=== PATIENT | female | born 1960 | race Caucasian/White ===

== ENCOUNTER 2016-06-22 12:26 | Emergency (ER) | payer OTHER ==
[~2016-06-22] VITALS: Ht 160 cm; Wt 56.7 kg
[2016-06-22] MEDS ORDERED: MEDROL4 M2 PO (12:51)
[2016-06-22] MEDS ORDERED: CYCLOBENZAPRINE10 M1 PO (12:51)
[2016-06-22] MEDS ORDERED: PERCOCET 5-3251 EACH PO (12:51)
--- NOTE | 2016-06-22 12:57 | ED NECK/BACK PAIN COMPLAINT ---
History of Present Illness General Chief Complaint: Neck/Upper Back Pain/Injury Stated Complaint: HEAD AND NECK PAIN Source: patient, old records Exam Limitations: no limitations Vital Signs & Intake/Output Vital Signs & Intake/Output Vital Signs Date Time Temp Pulse Resp B/P Pulse O2 O2 Flow FiO2 Ox Delivery Rate 06/22 1249 Room Air 06/22 1231 98.3 86 16 97 Room Air Allergies Coded Allergies: NO KNOWN ALLERGIES (06/22/16) Reconcile Medications Cyclobenzaprine HCl 10 MG TABLET 1 TAB PO TID PRN spasm Methylprednisolone. (Medrol) 4 MG TAB.DS.PK 1 DP PO AD inflammation 6 on day 1 then reduce by one tablet daily until gone Oxycodone HCl/Acetaminophen (Percocet 5-325 MG Tablet) 5 MG-325 MG TABLET 1 TAB PO TID PRN pain Triage Note: 56 Y/O FEMALE C/O PAIN IN NECK "SHOOTING" DOWN CENTER BACK, "ALL THE WAY DOWN"; ONSET TUESDAY AND CONSTANT SINCE ONSET. DENIES INJURY OR TRAUMA. HAS NOT TAKEN ANY MEDS FOR PAIN. Triage Nurses Notes Reviewed? yes HPI: 56-year-old female who states she has a past medical history of disc replacement surgery at 2 levels, anterior approach, a proximally 7 or 8 years ago, he was complains of posterior neck pain and radiates down the middle of her spine. Has been going on for 2 days and is getting worse. She works as a rn telemetry, states she had a busy night on Summer which could've triggered the symptoms. She has not taken any medication for the pain. She has neck stiffness and limited range of motion. There is no recent trauma or injury no neurologic symptoms of weakness or numbness down the extremities. No headaches or confusion. She has had history of treatment with epidural injections in the past and sees a pain management doctor however does not take narcotics for the pain and has stopped taking the Neurontin for the pain because she states it makes her sleepy and did not help her symptoms. (DALIA JARAMILLO) Past History Travel History Traveled to [place] past 21 day No Medical History Any Pertinent Medical History? see below for history Neurological: migraine EENT: NONE Cardiovascular: CAD, myocardial infarction, STENTS Respiratory: NONE Gastrointestinal: NONE Hepatic: NONE Renal: NONE Musculoskeletal: sciatica Psychiatric: NONE Endocrine: NONE Surgical History Surgical History: cervical disc replacement surgery two-level Psychosocial History What is your primary language Greenlandic Tobacco Use: Current Not Daily Family History Hx Contributory? No (DALIA JARAMILLO) Review of Systems Review of Systems Constitutional: Reports: see HPI. Eyes: Reports: no symptoms. Ears, Nose, Throat, Mouth: Reports: no symptoms. Respiratory: Reports: no symptoms. Cardiovascular: Reports: no symptoms. Gastrointestinal/Abdominal: Reports: no symptoms. Musculoskeletal: Reports: see HPI. Skin: Reports: no symptoms. Neurological/Psychological: Reports: no symptoms. All Other Systems: Reviewed and Negative (DALIA JARAMILLO) Physical Exam Physical Exam General Appearance: well developed/nourished Neck: supple, limited range of motion, muscle spasm, paraspinous muscle tender, spinous processes tender Comments: Well-developed well-nourished no apparent distress. HEENT: Atraumatic, extraocular motion intact Neck: Supple, no lymphadenopathy Back: Nontender Respiratory: No respiratory distress Extremities: No edema, full range of motion Neuro: Alert and oriented x3 Psych: Mood affect normal, normal memory normal judgment. Skin: Warm and dry, no rash on exposed skin (DALIA JARAMILLO) Progress Differential Diagnosis: AAA, aortic dissection, C spine injury, carotid dissection, cauda equina syn, herniated disc, myofascial strain, pyelo/UTI, sciatica, spinal cord inj, thoracic outlet syn, T/L spine injury, ureterolithiasis Plan of Care: Current Medications Sig/Robyn Start time Last Medication Dose Stop Time Status Admin Ketorolac 30 MG ONE ONE 06/22 1300 UNVr Tromethamine 06/22 1301 (Toradol) Oxycodone/ 1 TAB ONCE ONE 06/22 1300 UNVr Acetaminophen 06/22 1301 (Percocet) Comments: Signs symptoms is consistent with exacerbation of chronic neck pain and stiffness, she states she had an MRI a few months ago by her pain management doctor, did not feel further imaging studies as warranted at this time as it was noted trauma or neurologic symptoms. She has follow up with her pain management doctor in the next 2 weeks, the meantime we'll treat her with Medrol Dosepak, giving her an injection of Toradol now 30 mg IM, Percocet and muscle relaxers as outpatient. (DALIA JARAMILLO) Departure Departure Disposition: HOME OR SELF CARE Condition: Stable Clinical Impression Primary Impression: Cervical muscle strain Qualifiers: Encounter type: initial encounter Qualified Code: S16.1XXA - Strain of muscle, fascia and tendon at neck level, initial encounter Secondary Impressions: Cervicalgia Referrals: ISAMAR CHARLTON,SAFIA Calzada (PCP/Family) Additional Instructions: Follow-up with your pain management doctor in 2 weeks as scheduled. Take medications for pain, spasm and inflammation as needed. Rest, warm compresses, gentle stretching. Watch for worsening symptoms of pain, numbness or weakness down the arms or legs , return with any concerns. Departure Forms: Customer Survey General Discharge Information Prescriptions: Current Visit Scripts Oxycodone HCl/Acetaminophen (Percocet 5-325 MG Tablet) 1 TAB PO TID PRN pain #15 TAB Methylprednisolone. (Medrol) 1 DP PO AD #1 DP 6 on day 1 then reduce by one tablet daily until gone Cyclobenzaprine HCl 1 TAB PO TID PRN spasm #15 TAB (DALIA JARAMILLO) PA/INSULATION APPLICATOR Co-Sign Statement Statement: ED Attending supervision documentation- [] I saw and evaluated the patient. I have also reviewed all the pertinent lab results and diagnostic results. I agree with the findings and the plan of care as documented in the PA's/INSULATION APPLICATOR's documentation. x I have reviewed the ED Record and agree with the PA's/INSULATION APPLICATOR's documentation. [] Additions or exceptions (if any) to the PAs/INSULATION APPLICATOR's note and plan are summarized below: [] (DAYLIN CHARLTON,ALPESH)
== END 2016-06-22 13:03 ==
LOC: ERH 12:26
DX: S16.1XXA Strain of muscle, fascia and tendon at neck level, initial encounter (principal); M54.2 Cervicalgia
CPT/HCPCS: 96372; J1885